=== PATIENT | male | born 1955 | race Caucasian/White ===

== ENCOUNTER 2024-11-20 09:12 | Emergency (ER) | payer MEDICARE, MEDICAID ==
[2024-11-20] MEDS ORDERED: Dexamethasone 10 MG/ML VIAL ONE (10:31)
== END 2024-11-20 10:40 | disposition home or self-care (01) ==
LOC: BURERS 09:12
DX: J20.9 Acute bronchitis, unspecified (principal); M54.2 Cervicalgia; G89.29 Other chronic pain; I10 Essential (primary) hypertension; J44.9 Chronic obstructive pulmonary disease, unspecified; F17.210 Nicotine dependence, cigarettes, uncomplicated
CPT/HCPCS: 71046; 72125; 96372; J1100